=== PATIENT | male | born 1980 | race Caucasian/White ===

== ENCOUNTER 2018-01-03 10:47 | Inpatient (IN) | payer MEDICARE ==
[~2018-01-03] VITALS: Ht 172.7 cm; Wt 71.0 kg
[2018-01-03] MEDS ORDERED: CLONAZEPAM0.5 MG/TAB PO (11:08)
[2018-01-03] MEDS ORDERED: SUBOXONE 2 MG-01 TAB SL (11:08)
[2018-01-03 11:57] LABS: BASOPHILS 0.2 % (0-2); EOSINOPHILS 0.4 % (0-7); HEMATOCRIT 38.4 % (42.0-54.0); HEMOGLOBIN 13.4 g/dL (13.5-17.5); IMMATURE GRANULOCYTES 0.2 % (0-5); LYMPHOCYTES 33.1 % (15-50); MCH 30.5 pg (26.0-34.0); MCHC 34.9 g/dL (31.0-37.0); MCV 87.5 fL (80.0-100.0); MONOCYTES 5.1 % (2-11); PLATELET COUNT 217 10x3/uL (130-400); RBC 4.39 10x6/uL (4.20-6.10); RDW 12.5 % (11.5-14.5); WBC 9.2 10x3/uL (4.8-10.8)
[2018-01-03 12:03] LABS: ALBUMIN 3.9 g/dL (3.4-5.0); ALKALINE PHOSPHATASE 75 U/L (46-116); ALT (SGPT) 30 U/L (10-68); BILIRUBIN - TOTAL 0.53 mg/dL (0.2-1.3); CALC OSMOLALITY 280 mosm/kg (275-300); CALCIUM 8.9 mg/dL (8.5-10.1); CARBON DIOXIDE 30.7 mmol/L (21.0-32.0); CHLORIDE - SERUM 100 mmol/L (98-107); GLUCOSE 118 mg/dL (74-106); POTASSIUM - SERUM 3.8 mmol/L (3.5-5.1); PROTEIN - SERUM 7.8 g/dL (6.4-8.2); SODIUM 136 mmol/L (136-145); UREA NITROGEN 35 mg/dL (7-18); eGFR NON AFRICAN AMERICAN 90 mL/min (90-120)
[2018-01-03 12:05] LABS: AMYLASE - SERUM 41 U/L (25-115); LIPASE 253 U/L (73-393)
[2018-01-03 12:07] LABS: TROPONIN-I < 0.017 ng/mL (0.000-0.060)
[2018-01-03 12:29] LABS: APPEARANCE CLEAR (CLEAR); BACTERIA FEW /hpf (NONE SEEN); BILIRUBIN NEGATIVE (NEGATIVE); COLOR YELLOW (YELLOW); EPITHELIAL CELLS 0-5 /hpf (0-5); GLUCOSE NEGATIVE (NEGATIVE); KETONE NEGATIVE (NEGATIVE); MUCUS >1+ /lpf (NONE SEEN); NITRITE NEGATIVE (NEGATIVE); PROTEIN NEGATIVE (NEGATIVE); SPECIFIC GRAVITY 1.015 (1.005-1.020); SPERMATOZOA RARE /hpf (NONE SEEN); WHITE CELLS - URINE 0-5 /hpf (0-5)
[2018-01-03 19:05] VITALS: BP 111/69
[2018-01-03 20:10] VITALS: BP 108/69
[2018-01-03 21:10] VITALS: BP 114/71
[2018-01-03 21:56] VITALS: BP 135/86; BMI 23.8
[2018-01-03 22:00] VITALS: BP 140/86
[2018-01-03 23:00] VITALS: BP 111/71
[2018-01-04] VITALS (15 sets, daily range): BP systolic 87–123; BP diastolic 48–79; Ht 172.7 cm; Wt 71.0 kg
[2018-01-04 03:09] LABS: BASOPHILS 0.3 % (0-2); EOSINOPHILS 1.1 % (0-7); IMMATURE GRANULOCYTES 0.2 % (0-5); LYMPHOCYTES 53.6 % (15-50); MCH 30.3 pg (26.0-34.0); MCHC 34.7 g/dL (31.0-37.0); MCV 87.3 fL (80.0-100.0); MEAN PLATELET VOLUME 11.2 fL (7.4-10.4); MONOCYTES 7.5 % (2-11); NEUTROPHILS 37.3 % (40-80); RDW 12.5 % (11.5-14.5)
[2018-01-04 03:10] LABS: HEMATOCRIT 26.2 % (42.0-54.0); HEMOGLOBIN 9.1 g/dL (13.5-17.5); PLATELET COUNT 138 10x3/uL (130-400); WBC 6.4 10x3/uL (4.8-10.8)
[2018-01-04 03:14] LABS: INR 1.24 (0.85-1.17); PROTIME 15.1 SECONDS (11.6-15.0)
[2018-01-04 03:26] LABS: ALKALINE PHOSPHATASE 47 U/L (46-116); BILIRUBIN - TOTAL 0.31 mg/dL (0.2-1.3); CALCIUM 7.5 mg/dL (8.5-10.1); CARBON DIOXIDE 27.3 mmol/L (21.0-32.0); CHLORIDE - SERUM 107 mmol/L (98-107); CREATININE - SERUM 0.8 mg/dL (0.6-1.3); GLUCOSE 94 mg/dL (74-106); POTASSIUM - SERUM 3.8 mmol/L (3.5-5.1); SODIUM 139 mmol/L (136-145); eGFR NON AFRICAN AMERICAN > 90 mL/min (90-120)
[2018-01-04 03:27] LABS: ALBUMIN 2.7 g/dL (3.4-5.0); ALT (SGPT) 21 U/L (10-68); CALC OSMOLALITY 282 mosm/kg (275-300); PROTEIN - SERUM 5.5 g/dL (6.4-8.2); UREA NITROGEN 26 mg/dL (7-18)
[2018-01-04 16:07] LABS: HEMOGLOBIN 9.1 g/dL (13.5-17.5)
[2018-01-05 05:13] VITALS: BP 105/66
[2018-01-05 09:45] VITALS: BP 119/80
[2018-01-05 10:51] LABS: BASOPHILS 0.6 % (0-2); EOSINOPHILS 0.8 % (0-7); HEMATOCRIT 26.9 % (42.0-54.0); HEMOGLOBIN 9.4 g/dL (13.5-17.5); LYMPHOCYTES 32.1 % (15-50); MCH 30.4 pg (26.0-34.0); MCHC 34.9 g/dL (31.0-37.0); MCV 87.1 fL (80.0-100.0); MONOCYTES 6.4 % (2-11); NEUTROPHILS 60.1 % (40-80); PLATELET COUNT 122 10x3/uL (130-400); RBC 3.09 10x6/uL (4.20-6.10); RDW 12.8 % (11.5-14.5); WBC 5.3 10x3/uL (4.8-10.8)
[2018-01-05 11:02] LABS: CALC OSMOLALITY 271 mosm/kg (275-300); CALCIUM 7.8 mg/dL (8.5-10.1); CARBON DIOXIDE 27.7 mmol/L (21.0-32.0); CHLORIDE - SERUM 105 mmol/L (98-107); CREATININE - SERUM 0.8 mg/dL (0.6-1.3); GLUCOSE 103 mg/dL (74-106); POTASSIUM - SERUM 3.4 mmol/L (3.5-5.1); SODIUM 137 mmol/L (136-145); eGFR NON AFRICAN AMERICAN > 90 mL/min (90-120)
[2018-01-05 11:03] LABS: UREA NITROGEN 7 mg/dL (7-18)
[2018-01-05 12:52] VITALS: BP 115/74
[2018-01-05 16:40] VITALS: BP 113/69
[2018-01-05 21:20] VITALS: BP 146/70
[2018-01-06 02:00] VITALS: BP 119/77
[2018-01-06 05:48] LABS: BASOPHILS 0.2 % (0-2); EOSINOPHILS 1.2 % (0-7); HEMATOCRIT 26.9 % (42.0-54.0); HEMOGLOBIN 9.4 g/dL (13.5-17.5); LYMPHOCYTES 33.7 % (15-50); MCH 30.4 pg (26.0-34.0); MCHC 34.9 g/dL (31.0-37.0); MCV 87.1 fL (80.0-100.0); MEAN PLATELET VOLUME 11.7 fL (7.4-10.4); MONOCYTES 6.2 % (2-11); NEUTROPHILS 58.7 % (40-80); PLATELET COUNT 142 10x3/uL (130-400); RBC 3.09 10x6/uL (4.20-6.10); RDW 12.8 % (11.5-14.5); WBC 5.8 10x3/uL (4.8-10.8)
[2018-01-06 05:59] LABS: CALC OSMOLALITY 272 mosm/kg (275-300); CALCIUM 8.2 mg/dL (8.5-10.1); CARBON DIOXIDE 26.8 mmol/L (21.0-32.0); CHLORIDE - SERUM 105 mmol/L (98-107); CREATININE - SERUM 0.7 mg/dL (0.6-1.3); GLUCOSE 98 mg/dL (74-106); POTASSIUM - SERUM 3.5 mmol/L (3.5-5.1); SODIUM 138 mmol/L (136-145); eGFR NON AFRICAN AMERICAN > 90 mL/min (90-120)
[2018-01-06 06:00] VITALS: BP 120/69
[2018-01-06 06:00] LABS: UREA NITROGEN 5 mg/dL (7-18)
[2018-01-06 08:00] VITALS: BP 112/64
[2018-01-06] MEDS ORDERED: LEVAQUIN750 MG PO (09:29)
[2018-01-06] MEDS ORDERED: CARAFATE1 G/10 ML PO (09:29)
[2018-01-06] MEDS ORDERED: FLAGYL500 MG PO (09:29)
[2018-01-06] MEDS ORDERED: PROTONIX40 MG PO (09:30)
== END 2018-01-06 15:48 | disposition home or self-care (01) | DRG 369 ==
LOC: D.ER 10:47 → D.EDHOLD 19:17 → D.M2 19:17 → D.ICU 19:17 → D.M2 01-05 02:41
PROVIDERS: Family Medicine; Internal Medicine Gastroenterology; Internal Medicine Nephrology
PROC: 0W3P8ZZ Control Bleeding in Gastrointestinal Tract, Via Natural or Artificial Opening Endoscopic (ICD-10-PCS; principal; 2018-01-04 07:45)
DX: K22.6 Gastro-esophageal laceration-hemorrhage syndrome (principal); D62 Acute posthemorrhagic anemia; F17.203 Nicotine dependence unspecified, with withdrawal; K29.71 Gastritis, unspecified, with bleeding; K29.81 Duodenitis with bleeding; K92.0 Hematemesis; K92.1 Melena; K52.9 Noninfective gastroenteritis and colitis, unspecified; F17.200 Nicotine dependence, unspecified, uncomplicated; K44.9 Diaphragmatic hernia without obstruction or gangrene; R10.9 Unspecified abdominal pain; F12.90 Cannabis use, unspecified, uncomplicated